=== PATIENT | male | born 1935 | race Caucasian/White ===

== ENCOUNTER 2020-11-07 10:01 | Emergency (ER) | payer MEDICARE, BC ==
[~2020-11-07] VITALS: Ht 180.3 cm; Wt 81.8 kg
[~2020-11-07 10:01] MED LIST: AMLO1TAB12 PO; ATOR20TA PO; PRAM0.253 PO; RIVA20TA PO; SERT25TA PO
[2020-11-07 10:05] VITALS: BP 149/65
== END 2020-11-07 12:19 | disposition home or self-care (01) ==
LOC: ER 10:01
DX: S80.11XA Contusion of right lower leg, initial encounter (principal); E78.00 Pure hypercholesterolemia, unspecified; I10 Essential (primary) hypertension; Z88.2 Allergy status to sulfonamides; Z88.1 Allergy status to other antibiotic agents; Z79.899 Other long term (current) drug therapy; W01.0XXA Fall on same level from slipping, tripping and stumbling without subsequent striking against object, initial encounter; Y93.89 Activity, other specified; Y92.89 Other specified places as the place of occurrence of the external cause; Y99.8 Other external cause status
CPT/HCPCS: 73590; 99283

== ENCOUNTER 2021-11-07 12:23 | Day surgery (SDC) | payer MEDICARE, BC ==
[2021-10-26 14:34] LABS: BASOPHILS # (AUTO) 0.1 X10'3 (0-0.2); BASOPHILS % (AUTO) 0.7 % (0-1); EOSINOPHILS # (AUTO) 0.1 X10'3 (0-0.9); EOSINOPHILS % (AUTO) 1.4 % (0-6); HEMATOCRIT 41.3 % (42.0-52.0); HEMOGLOBIN 13.6 g/dl (14.0-17.9); LYMPHOCYTES % (AUTO) 11.1 % (21-51); MONOCYTES # (AUTO) 0.8 X10'3 (0-0.9); MONOCYTES % (AUTO) 8.8 % (2-12); NEUTROPHILS # (AUTO) 6.9 X10'3 (1.8-7.7); PLATELET COUNT 269 X10'3 (140-440); RED CELL DISTRIBUTION WIDTH 14.1 % (11.5-14.5); WHITE BLOOD COUNT 8.9 X10'3 (4.5-11.0)
[2021-10-26 14:44] LABS: APTT 30 SECONDS (22-32)
[2021-10-26 14:50] LABS: ALBUMIN 3.5 G/DL (3.4-5.0); ANION GAP 7 (8-16); BLOOD UREA NITROGEN 21 MG/DL (7-18); BUN/CREATININE RATIO 17.8 (5.4-32.0); CALCIUM 8.8 MG/DL (8.5-10.1); CHLORIDE 105 MMOL/L (99-107); CREATININE 1.18 MG/DL (0.60-1.10); GLUCOSE 96 MG/DL (70-104); POTASSIUM 3.7 MMOL/L (3.5-5.1); SODIUM 142 MMOL/L (135-145); TOTAL CARBON DIOXIDE 29.6 MMOL/L (24-32); eGFR 59 ML/MIN
[~2021-11-07] VITALS: Ht 180.3 cm; Wt 77.2 kg
[2021-11-07] VITALS (9 sets, daily range): BP systolic 124–171; BP diastolic 67–101
[2021-11-07] MEDS ORDERED: normal saline 1000ml 1,000 ML IV SCH (12:50)
[2021-11-07] MEDS ORDERED: fentaNYL/PF 50MCG/1 ML 2ML syringe IV ONE (12:50)
[2021-11-07] MEDS ORDERED: MIDAZolam 1mg/ml 10ml vial IV ONE (12:50)
[2021-11-07] MEDS ORDERED: AMIO200T61 PO (12:53)
[2021-11-07] MEDS ORDERED: ROSU10TA2 PO (12:53)
[2021-11-07] MEDS ORDERED: FESO4TAB PO (12:53)
== END 2021-11-07 16:05 | disposition home or self-care (01) ==
LOC: SSTAY O 12:23
PROVIDERS: ATTEND Internal Medicine Interventional Cardiology
DX: I48.0 Paroxysmal atrial fibrillation (principal); I10 Essential (primary) hypertension; I65.29 Occlusion and stenosis of unspecified carotid artery; E78.5 Hyperlipidemia, unspecified; I35.0 Nonrheumatic aortic (valve) stenosis; Z95.0 Presence of cardiac pacemaker; Z88.1 Allergy status to other antibiotic agents; Z88.2 Allergy status to sulfonamides; Z79.899 Other long term (current) drug therapy
CPT/HCPCS: 36415; 80048; 85025; 85610; 85730; 92960; 93005; 94760; 94799; J2250; J3010; J7030

== ENCOUNTER 2025-02-22 07:02 | Day surgery (SDC) | payer MEDICARE, BC ==
[~2025-02-22] VITALS: Ht 180.3 cm; Wt 77.2 kg
[~2025-02-22 07:02] MED LIST changes: +AMI200T PO; -AMLO1TAB12 PO; -ATOR20TA PO; +FESO4TAB PO; +OMEP40CA21 PO; -PRAM0.253 PO; -SERT25TA PO; +TAMSULOSIN
[2025-02-22 07:29] VITALS: BP 169/81; PULSE 70; RESP 17
[2025-02-22] MEDS ORDERED: LIDOcaine 2% Viscous 15ml cup ONE (07:43)
[2025-02-22] MEDS ORDERED: fentaNYL/PF 50MCG/1 ML 2ML syringe ONE (07:53)
[2025-02-22] MEDS ORDERED: MIDAZolam 1 MG/ML 5ML VIAL ONE (07:53)
[2025-02-22 08:10] VITALS: BP 130/72; PULSE 70; RESP 14; O2SAT 96
[2025-02-22 08:20] VITALS: BP 142/76; PULSE 70; RESP 15; O2SAT 96
[2025-02-22 08:30] VITALS: BP 128/72; PULSE 70; RESP 11; O2SAT 94
[2025-02-22 08:40] VITALS: BP 132/71; PULSE 72; RESP 13; O2SAT 94
--- NOTE | 2025-02-23 17:54 | PATHOLOGY REPORT ---
[facility] [address] [place] [address] SURGICAL PATHOLOGY REPORT CaseNumber: [id number] Surgeon:Chad Rayo M.D. CLINICAL INFORMATION CLINICAL INFORMATION: Dysphagia. DIAGNOSIS DIAGNOSIS: A.STOMACH; BIOPSY - NO HISTOPATHOLOGIC ABNORMALITY. - NEGATIVE FOR DYSPLASIA AND MALIGNANCY. DIAGNOSIS: B.GASTROESOPHAGEAL JUNCTION; BIOPSY - GASTROESOPHAGEAL JUNCTION MUCOSA WITH ESOPHAGEAL MUCOSA WITH MILD ACUTE ESOPHAGITIS AND GASTRI C CARDIAC MUCOSA WITH MILD CHRONIC GASTRITIS. - NEGATIVE FOR DYSPLASIA AND MALIGNANCY. - HISTOCHEMICAL STAIN (GMS) NEGATIVE FOR FUNGUS. MICROSCOPIC DESCRIPTION A. STOMACH MICROSCOPIC DESCRIPTION: Microscopic examination is performed on one H&E stained slide. Present is mi nimal chronic inflammation and rare reactive epithelial changes consistent with age. There is no evid ence of ulcer, intestinal metaplasia, dysplasia, or malignancy. There is no evidence of Helicobacter pylori on the H&E stained slide. B. GASTROESOPHAGEAL JUNCTION MICROSCOPIC DESCRIPTION: Microscopic examination is performed on one H&E stained slide. Present is ga stroesophageal junction mucosa with squamous bearing esophageal mucosa with focal acute inflammation. A histochemical stain for fungus (GMS) is completed and is negative. There is also mild chronic infl ammation within the gastric cardiac mucosa consisting of lymphocytes and plasma cells. Changes consis tent with gastroesophageal reflux disease are not present. There is no evidence of viral effect, inte stinal metaplasia, dysplasia, or malignancy. There are no polarizable debris. (bb) GROSS DESCRIPTION A. STOMACH GROSS DESCRIPTION: Received in a container of formalin labeled with the patient's name, number, and " gastric BX" are 3 pieces of wallace tissue 0.3-0.6 x 0.1 x 0.1 cm. The specimen is entirely submitted as A1. The time at which the specimen was removed was 0805. The time at which the specimen was placed in formalin was 0810. B. GASTROESOPHAGEAL JUNCTION GROSS DESCRIPTION: Received in a container of formalin labeled with the patient's name, number, and " GE junction BX" are 3 pieces of wallace tissue 0.2-0.4 x 0.2 x 0.1 cm. The specimen is entirely submitted as B1. The time at which the specimen was removed was 0806. The time at which the specimen was place d in formalin was 0810. Electronically signed by: Timo Burns D.O. 02/23/2025 5:28:00 PM
== END 2025-02-22 08:57 | disposition home or self-care (01) ==
LOC: GI LAB 07:02
PROVIDERS: ATTEND Internal Medicine Gastroenterology
DX: R13.10 Dysphagia, unspecified (principal); K22.2 Esophageal obstruction; K44.9 Diaphragmatic hernia without obstruction or gangrene; K29.50 Unspecified chronic gastritis without bleeding; K20.90 Esophagitis, unspecified without bleeding; I48.91 Unspecified atrial fibrillation; Z79.899 Other long term (current) drug therapy
CPT/HCPCS: 43239; 43248; A4620; C1769; G0500; J2250; J3010; J7030; Z7512; 99152